=== PATIENT | female | born 1950 | race Asian ===

== ENCOUNTER 2016-07-02 10:20 | Observation (INO) | payer MEDICARE ==
[2016-07-02] MEDS ORDERED: Alum Hydroxide/Mag Hydroxide 30 ML, Lidocaine 2% 15 ML PO ONE ×2 (10:41)
[2016-07-02] MEDS: Sodium Chloride 0.9% 1,000 ML IV SCH ×4 (10:42→23:32)
[2016-07-02] MEDS ORDERED: Aspirin 81 MG Tab.Chew PO ONE (10:42)
[2016-07-02] MEDS ORDERED: Insulin Regular, Human 100 Units/ML 3 ML Vial IV ONE (10:44)
[2016-07-02] MEDS ORDERED: Sodium Chloride 0.9% 1,000 ML IV SCH (10:45)
--- NOTE | 2016-07-02 10:51 | EDM.PDOC ---
ED HPI GENERAL MEDICAL PROBLEM - General Chief Complaint: General Stated Complaint: CHEST PAIN -PH BLOOD SUGAR Time Seen by Provider: 07/02/16 10:00 Source of Information: Reports: Patient History Limitations: Reports: No limitations - History of Present Illness INITIAL COMMENTS - FREE TEXT/NARRATIVE: c/o N, V, diarrhea, rib pain, sternal pain x 24h pt had seen Dr Reyes in past, dx DM nearly 10y ago, had been on metformin, on no meds and not seen a physician in 3y and daughter are here watery brown BM x 20 yesterday with N/V has had L lower rib pain anteriorly x 1m, now with midsubsternal CP off and on x 12h, in ED with rib pain but no substernal pain no f/c/d, weak, no appetite smokes 1 ppd Thoracic Pain Score (Numeric/FACES): 6 - Related Data Allergies Allergy/AdvReac Type Severity Reaction Status Date / Time No Known Allergies Allergy Verified 07/02/16 10:33 Home Meds: Home Meds NK [No Known Home Meds] 07/02/16 [History] Past Medical History - Past Surgical History Other Musculoskeletal Surgeries/Procedures:: ELBOW ET WRIST SURGERY Social & Family History - Tobacco Use Smoking Status *Q: Current Every Day Smoker Years of Tobacco use: 40 Used Tobacco, but Quit: No Second Hand Smoke Exposure: No - Alcohol Use Days Per Week of Alcohol Use: 0 - Recreational Drug Use Recreational Drug Use: No ED ROS GENERAL - Review of Systems Review Of Systems: See Below Constitutional: Reports: weakness, fatigue, decreased appetite HEENT: Reports: No symptoms Respiratory: Reports: No Symptoms, Other Cardiovascular: Reports: Chest pain Endocrine: Reports: no symptoms GI/Abdominal: Reports: No symptoms : Reports: no symptoms Musculoskeletal: Reports: no symptoms Skin: Reports: no symptoms Neurological: Reports: No Symptoms Psychiatric: Reports: No symptoms Hematologic/Lymphatic: Reports: no symptoms Immunologic: Reports: no symptoms ED EXAM, GENERAL - Physical Exam Exam: See Below Exam Limited By: No limitations General Appearance: alert, WD/WN, no apparent distress Ears: normal external exam, hearing grossly normal Nose: normal inspection, normal mucosa, no blood Throat/Mouth: Normal inspection, Normal lips, Normal teeth, Normal gums, Normal oropharynx, Normal voice, No airway compromise Head: atraumatic, normocephalic Neck: normal inspection, supple, non-tender, full range of motion Respiratory/Chest: no respiratory distress, lungs clear, normal breath sounds, no accessory muscle use, chest non-tender Cardiovascular: regular rate, rhythm, no edema, no gallop, no rub, other (2/6 JOSÉ at LSB) GI/Abdominal: soft, non tender, no organomegaly, no distention, no mass Back Exam: normal inspection, full range of motion, NT Extremities: normal inspection, normal range of motion, non-tender, no pedal edema, normal capillary refill, other (dec'd turgor UE without tenting) Neurological: alert, oriented, CN II-XII intact, normal cognition, no motor/ sensory deficits Psychiatric: normal affect, normal mood Skin Exam: Warm, Dry, Intact, Normal color, No rash Course - Vital Signs Last Recorded V/S: Last Vital Signs Temp 36.4 C 07/02/16 10:35 Pulse 84 07/02/16 10:35 Resp 28 H 07/02/16 10:35 BP 115/35 L 07/02/16 10:35 Pulse Ox 100 07/02/16 10:35 - Orders/Labs/Meds Orders: Active Orders 24 hr Category Date Time Status Ribs 2V w Chest Lt [CR] Stat Exams 07/02/16 10:39 Taken CULTURE BLOOD [BC] Urgent Lab 07/02/16 11:05 Received CULTURE BLOOD [BC] Urgent Lab 07/02/16 11:15 Received UA W/MICROSCOPIC [URIN] Stat Lab 07/02/16 10:36 Uncollected Sodium Chloride 0.9% [Normal Saline] 1,000 ml Med 07/02/16 10:45 Active IV ASDIRECTED Blood Culture x2 Reflex Set [OM.PC] Urgent Oth 07/02/16 10:36 Ordered EKG 12 Lead [EK] Routine Ther 07/02/16 10:36 Ordered Medication Orders Sodium Chloride (Normal Saline) 1,000 mls @ 999 mls/hr IV ASDIRECTED LUZ MARINA Labs: Laboratory Tests 07/02/16 07/02/16 07/02/16 Range/Units 11:05 11:05 11:05 WBC (4.5-12.0) X10-3/uL RBC (3.23-5.20) x10(6)uL Hgb (11.5-15.5) g/dL Hct (30.0-51.3) % MCV (80-96) fL MCH (27.7-33.6) pg MCHC (32.2-35.4) g/dL RDW (11.5-15.5) % Plt Count (125-369) X10(3)uL MPV (7.4-10.4) fL Neut % (Auto) (46-82) % Lymph % (Auto) (13-37) % [place] % (Auto) (4-12) % Eos % (Auto) (1.0-5.0) % Baso % (Auto) (0-2) % Neut # (Auto) (1.6-8.3) # Lymph # (Auto) (0.6-5.0) # [place] # (Auto) (0.0-1.3) # Eos # (Auto) (0.0-0.8) # Baso # (Auto) (0.0-0.2) # Sodium 137 (135-145) mmol/L Potassium 4.6 (3.5-5.3) mmol/L Chloride 114 H D (100-110) mmol/L Carbon Dioxide 14 L (23-29) mmol/L BUN 31 H D (8-23) mg/dL Creatinine 1.7 H (0.6-1.3) mg/dL Est Cr Clr Drug Dosing 20.51 mL/min Estimated GFR (MDRD) 30 L (>60) BUN/Creatinine Ratio 18.2 (9-20) Glucose 293 H (80-116) mg/dL POC Glucose (80-116) mg/dL Lactic Acid (0.5-2.2) mmol/L Calcium 8.4 L (8.6-10.2) mg/dL Phosphorus 4.2 (3.0-4.6) mg/dL Magnesium 1.9 (1.8-2.5) mg/dL Total Bilirubin 0.7 (0.1-1.3) mg/dL AST 20 D (5-27) IU/L ALT 15 D (14-26) IU/L Alkaline Phosphatase 117 H (56-112) IU/L Troponin I < 0.01 L (0.02-0.06) NG/ML C-Reactive Protein 1.1 H (0.0-1.0) mg/dL Total Protein 6.8 (6.0-8.0) g/dL Albumin 3.7 (3.2-4.6) g/dL Globulin 3.1 g/dL Albumin/Globulin Ratio 1.2 TSH, Ultra Sensitive 1.19 (0.4-5.5) nlU/mL 07/02/16 07/02/16 07/02/16 Range/Units 11:09 11:15 11:15 WBC 7.1 (4.5-12.0) X10-3/uL RBC 4.65 (3.23-5.20) x10(6)uL Hgb 13.8 (11.5-15.5) g/dL Hct 40.9 (30.0-51.3) % MCV 88.1 (80-96) fL MCH 29.8 (27.7-33.6) pg MCHC 33.8 (32.2-35.4) g/dL RDW 12.5 (11.5-15.5) % Plt Count 235 (125-369) X10(3)uL MPV 8.5 (7.4-10.4) fL Neut % (Auto) 84.4 H (46-82) % Lymph % (Auto) 10.7 L (13-37) % [place] % (Auto) 4.4 (4-12) % Eos % (Auto) 0 L (1.0-5.0) % Baso % (Auto) 0 (0-2) % Neut # (Auto) 6.0 (1.6-8.3) # Lymph # (Auto) 0.8 (0.6-5.0) # [place] # (Auto) 0.3 (0.0-1.3) # Eos # (Auto) 0.0 (0.0-0.8) # Baso # (Auto) 0.0 (0.0-0.2) # Sodium (135-145) mmol/L Potassium (3.5-5.3) mmol/L Chloride (100-110) mmol/L Carbon Dioxide (23-29) mmol/L BUN (8-23) mg/dL Creatinine (0.6-1.3) mg/dL Est Cr Clr Drug Dosing mL/min Estimated GFR (MDRD) (>60) BUN/Creatinine Ratio (9-20) Glucose (80-116) mg/dL POC Glucose 267 H (80-116) mg/dL Lactic Acid 2.5 H (0.5-2.2) mmol/L Calcium (8.6-10.2) mg/dL Phosphorus (3.0-4.6) mg/dL Magnesium (1.8-2.5) mg/dL Total Bilirubin (0.1-1.3) mg/dL AST (5-27) IU/L ALT (14-26) IU/L Alkaline Phosphatase (56-112) IU/L Troponin I (0.02-0.06) NG/ML C-Reactive Protein (0.0-1.0) mg/dL Total Protein (6.0-8.0) g/dL Albumin (3.2-4.6) g/dL Globulin g/dL Albumin/Globulin Ratio TSH, Ultra Sensitive (0.4-5.5) nlU/mL Meds: Medications Generic Name Dose Route Start Last Admin Trade Name Freq PRN Reason Stop Dose Admin Sodium Chloride 1,000 mls @ 999 mls/hr 07/02/16 10:45 Normal Saline IV ASDIRECTED LUZ MARINA Discontinued Medications Generic Name Dose Route Start Last Admin Trade Name Freq PRN Reason Stop Dose Admin Aspirin 324 mg 07/02/16 10:42 07/02/16 10:58 Aspirin PO 07/02/16 10:43 324 mg ONETIME ONE Administration Al Hydroxide/Mg Hydroxide 30 0 ml 07/02/16 10:41 07/02/16 11:03 ml/ Lidocaine HCl 15 ml PO 07/02/16 10:42 15 ml ONETIME ONE Administration Sodium Chloride 1,000 mls @ 999 mls/hr 07/02/16 10:45 07/02/16 12:12 Normal Saline IV 999 mls/hr ASDIRECTED LUZ MARINA Administration Insulin Human Regular 10 unit 07/02/16 10:44 07/02/16 11:23 Humulin R IV 07/02/16 10:45 Not Given ONETIME ONE Protocol - Re-Assessments/Exams Free Text/Narrative Re-Assessment/Exam: 07/02/16 12:32 12:32 d/w Dr Quiros who has accepted pt in admission, pt and agrees. Pt has EKG changes suggesting inferior wall ischemia, now nicely improved. Not given us a u/a yet which will still need to be done, receiving 2nd liter IVF. Slight mid substernal CP resolved with GI cocktail, still has rib pain, will tx rib pain with APAP and warm compresses. Pt more alert and animated after IVF, nontoxic. Departure - Departure Time of Disposition: 12:36 Disposition: 20 Condition: good Clinical Impression: Chest pain, rule out acute myocardial infarction, Dehydration, Lactic acidosis , Poorly controlled diabetes mellitus, Acute renal insufficiency, Acute electrocardiogram changes, T wave inversion on electrocardiogram, Diarrhea, Rib pain on left side, Hyperglycemia due to type 2 diabetes mellitus Forms: ED Department Discharge - My Orders Last 24 Hours: My Active Orders 07/02/16 10:36 UA W/MICROSCOPIC [URIN] Stat Blood Culture x2 Reflex Set [OM.PC] Urgent EKG 12 Lead [EK] Routine 07/02/16 10:39 Ribs 2V w Chest Lt [CR] Stat 07/02/16 10:45 Sodium Chloride 0.9% [Normal Saline] 1,000 ml IV ASDIRECTED 07/02/16 11:05 CULTURE BLOOD [BC] Urgent 07/02/16 11:15 CULTURE BLOOD [BC] Urgent - Assessment/Plan Last 24 Hours: My Active Orders 07/02/16 10:36 UA W/MICROSCOPIC [URIN] Stat Blood Culture x2 Reflex Set [OM.PC] Urgent EKG 12 Lead [EK] Routine 07/02/16 10:39 Ribs 2V w Chest Lt [CR] Stat 07/02/16 10:45 Sodium Chloride 0.9% [Normal Saline] 1,000 ml IV ASDIRECTED 07/02/16 11:05 CULTURE BLOOD [BC] Urgent 07/02/16 11:15 CULTURE BLOOD [BC] Urgent
[2016-07-02] MEDS ORDERED: Ondansetron 4 MG/2 ML SDV IV PRN (12:39)
[2016-07-02] MEDS ORDERED: Sodium Chloride 0.9% 10 ML Syringe FLUSH PRN (12:39)
[2016-07-02] MEDS ORDERED: Pneumococcal Polyvalent-23 Vaccine 0.5 ML SDV IM ONE (14:09)
--- NOTE | 2016-07-02 14:48 | CR ---
INDICATION: Left lower rib pain anteriorly after trauma to anterior left rib area. LEFT RIBS WITH CHEST: CHEST: An AP upright and an AP supine view of the chest were obtained. Nipple shadows are noted overlying the lower middle lung roa. A dextroconvex scoliosis of the thoracic spine is slightly more prominent than on the previous study of 08/22/2014. Bony structures may be slightly demineralized, raising question of osteoporosis - correlate clinically. Overlying EKG leads were noted. The heart is normal in size and shape. The aorta is calcified slightly in the arch area. An active infiltrate, effusion, contusion, or pneumothorax was not identified. IMPRESSION: 1. No acute process. 2. ASD aorta. 4. Mild scoliosis. 5. Question possibility of osteoporosis. LEFT RIBS: Three views of the left ribs were obtained and revealed an appearance suggesting demineralization - correlate clinically as to the possibility of osteoporosis. No displaced fracture site or other definite bony abnormality was identified. MTDD
--- NOTE | 2016-07-02 20:22 | PCM.HP ---
H&P History of Present Illness - General Date of Service: 07/02/16 Admit Problem/Dx: Admission Diagnosis/Problem Admission Diagnosis/Problem Chest pain Source of Information: Patient, Old records History Limitations: Reports: No limitations - History of Present Illness Initial Comments - Free Text/Narative: This is a 65-year-old female who presented to ER with diarrhea and vomiting she was in her usual state of health until yesterday. The diarrhea started suddenly accompanied by vomiting she's unable to keep anything down. She also developed chest pain today, retrosternal described as heartburn. She is up about a week ago leaned on the table in the left side and now complains of left rib cage pain as well. The chest pain is mild to moderate improved by oxygenation and does not seem to radiate anywhere. She has no fever or chills. She has a history of type 2 diabetes has not seen a doctor for more than 3 years because of insurance reasons. She also smokes about one pack per day. Thoracic Pain Score (Numeric/FACES): 6 Midsternal chest Pain Score (Numeric/FACES): 0 - Related Data Allergies/Adverse Reactions: Allergies Allergy/AdvReac Type Severity Reaction Status Date / Time No Known Allergies Allergy Verified 07/02/16 10:33 Home Medications: Home Meds NK [No Known Home Meds] 07/02/16 [History] Past Medical History HEENT History: Reports: Cataract, Impaired vision Cardiovascular History: Reports: SOB on exertion Respiratory History: Reports: SOB Gastrointestinal History: Reports: GERD Genitourinary History: Reports: Pyelonephritis, UTI, recurrent [employer] History: Reports: Musculoskeletal History: Reports: Arthritis Psychiatric History: Reports: Anxiety, Depression, Panic attack Endocrine/Metabolic History: Reports: Diabetes, type II - Infectious Disease History Infectious Disease History: Reports: Chicken pox - Past Surgical History GI Surgical History: Reports: Appendectomy Female Surgical History: Reports: section Other Female Surgeries/Procedures: CS x 2 Musculoskeletal Surgical History: Reports: Arthroscopic knee, Hip replacement Other Musculoskeletal Surgeries/Procedures:: R ELBOW ET R WRIST SURGER, R knee scope, R hip replacement Social & Family History - Family History Family Medical History: Noncontributory - Tobacco Use Smoking Status *Q: Current Every Day Smoker Years of Tobacco use: 40 Packs/Tins Daily: 1 Used Tobacco, but Quit: No Second Hand Smoke Exposure: No - Caffeine Use Caffeine Use: Reports: Coffee, Soda, Tea - Alcohol Use Days Per Week of Alcohol Use: 0 - Recreational Drug Use Recreational Drug Use: No H&P Review of Systems - Review of Systems: Review Of Systems: ROS reveals no pertinent complaints other than HPI. Exam - Exam Exam: See Below - Vital Signs Vital Signs: Last Vital Signs Temp 98.3 F 07/02/16 16:40 Pulse 84 07/02/16 10:35 Resp 18 07/02/16 17:40 BP 108/42 L 07/02/16 17:40 Pulse Ox 100 07/02/16 17:40 Weight: 39.326 kg - Exam Quality Assessment: supplemental oxygen General: alert, oriented, 4 HEENT: PERRLA, Hearing intact, Mucosa moist & pink, Nares patent, Normal nasal septum, Posterior pharynx clear, Conjunctiva clear, EOMI, EACs clear, TMs clear Neck: supple, trachea midline, 2 Lungs: Clear to auscultation, Normal respiratory effort Cardiovascular: regular rate, regular rhythm Abdomen: normal bowel sounds, soft (Female) Exam: Deferred Rectal (Female) Exam: Deferred Back Exam: normal inspection, full range of motion, NT Extremities: 3, normal inspection, 10 Skin: warm, dry, intact Neurological: cranial nerves intact, reflexes equal bilateral Neuro Extensive - Mental Status: alert, oriented x3, normal mood/affect, normal cognition Neuro Extensive - Motor, Sensory, Reflexes: CN II-XII intact, normal gait, normal reflexes Psychiatric: alert, normal affect, normal mood - Patient Data Lab Results last 24 hrs: Laboratory Results - last 24 hr 07/02/16 07/02/16 07/02/16 Range/Units 14:15 16:49 18:07 POC Glucose 107 D (80-116) mg/dL Troponin I < 0.01 L (0.02-0.06) NG/ML Urine Color Yellow (YELLOW) Urine Appearance Slightly cloudy (CLEAR) Urine pH 5.0 (5.0-6.5) Ur Specific [place] 1.020 (1.010-1.025) Urine Protein Negative (NEGATIVE) mg/dL Urine Glucose (UA) >1000 H (NEGATIVE) mg/dL Urine Ketones Negative (NEGATIVE) mg/dL Urine Occult Blood Negative (NEGATIVE) Urine Nitrite Negative (NEGATIVE) Urine Bilirubin Negative (NEGATIVE) Urine Urobilinogen Normal (NEGATIVE) mg/dL Ur Leukocyte Esterase Small H (NEGATIVE) Urine RBC 0-5 (0) Urine WBC 0-5 (0) Ur Squamous Epith Cells Few H (NS,R,O) Urine Bacteria Few H (NS) Result Diagrams: 07/02/16 11:15 07/02/16 11:05 Imaging Impressions last 24 hrs: Reviewed CXR EKG INTERPRETATION Rhythm: NSR *Q Meaningful Use (ADM) - VTE *Q VTE Criteria *Q: - Stroke *Q Stroke Criteria *Q: - AMI *Q AMI Criteria *Q: - Problem List (1) Tobacco abuse SNOMED Code(s): 671287269, 541398465 ICD Code: Z72.0 - TOBACCO USE Status: Acute Current Visit: Yes (2) Hyperlipemia SNOMED Code(s): 25744037 ICD Code: E78.5 - HYPERLIPIDEMIA, UNSPECIFIED Status: Acute Current Visit : Yes Qualifiers: Hyperlipidemia type: unspecified Qualified Code(s): E78.5 - Hyperlipidemia , unspecified (3) Chest pain, rule out acute myocardial infarction SNOMED Code(s): 15160041 ICD Code: R07.9 - CHEST PAIN, UNSPECIFIED Status: Acute Current Visit: Yes (4) Diarrhea SNOMED Code(s): 73386045 ICD Code: R19.7 - DIARRHEA, UNSPECIFIED Status: Acute Current Visit: Yes Qualifiers: Diarrhea type: infectious Qualified Code(s): A09 - Infectious gastroenteritis and colitis, unspecified (5) Poorly controlled diabetes mellitus SNOMED Code(s): 289002020 ICD Code: E11.65 - TYPE 2 DIABETES MELLITUS WITH HYPERGLYCEMIA Status: Chronic Current Visit: Yes (6) Rib pain on left side SNOMED Code(s): 497775669 ICD Code: R07.81 - PLEURODYNIA Status: Acute Current Visit: Yes Problem List Initiated/Reviewed/Updated: Yes Orders Last 24hrs: Active Orders 24 hr Category Date Time Status Blood Glucose Check, Bedside [RC] 07,11,16,21 Care 07/02/16 16:00 Active Echo Comp wo Cont [US] Routine Exams 07/03/16 08:00 Ordered Sodium Chloride 0.9% [Normal Saline] 1,000 ml Med 07/02/16 13:30 Active IV ASDIRECTED EKG 12 Lead [EK] Routine Ther 07/02/16 18:00 Ordered Medication Orders Acetaminophen (Tylenol) 650 mg PO Q4H PRN PRN Reason: Pain (Mild 1-3)/fever Sodium Chloride (Normal Saline) 1,000 mls @ 100 mls/hr IV ASDIRECTED LUZ MARINA Last Admin: 07/02/16 13:20 Dose: 100 mls/hr Ondansetron HCl (Zofran) 4 mg IV Q4H PRN PRN Reason: Nausea/Vomiting Sodium Chloride (Saline Flush) 10 ml FLUSH ASDIRECTED PRN PRN Reason: Keep Vein Open Assessment/Plan Comment:: I revieed both the chest x-ray and EKG;I was not impressed by any findings. Will admit however for rule out NM with negative troponins the morning and this limits with a gastroenteritis and treat symptomatically Zofran as needed. Her sugars appear to be normal but we'll keep a tight glucose control I anticipate discharge tomorrow.
[2016-07-03] MEDS: Acetaminophen 325 MG Tab PO PRN ×3 (05:30→21:15)
[2016-07-03] MEDS ORDERED: glipiZIDE 5 MG Tab.ER PO SCH (10:00)
[2016-07-03] MEDS: Sodium Chloride 0.9% 1,000 ML IV SCH ×3 (10:28→23:45)
--- NOTE | 2016-07-03 11:47 | CR ---
INDICATION: Question pneumonia after hydration, chest pain. CHEST: PA and lateral views of the chest 07/03/2016 were compared with 2016 and 08/22/2014. The heart remains normal in size and shape. There is some minimal calcification in the arch of the aorta. Bony structures appear to be somewhat demineralized, suggesting osteoporosis. A mild dextroconvex scoliosis of upper middle thoracic spine is noted with some very minimal loss of anterior vertebral artery volume at mid and lower thoracic level. No evidence of CHF or an active infiltrate or effusion was identified. Somewhat flattened diaphragm leaves suggest obstructive airway disease - COPD. Overlying EKG leads are noted. IMPRESSION: 1. No definite acute process. 2. COPD, progressive. 3. ASD aorta. 4. Demineralization compatible with osteoporosis with mild scoliosis. 5. No consolidating pneumonia or effusion. MTDD
[2016-07-03] MEDS: Insulin Aspart 100 Units/ML 3 ML Pen SUBCUT SCH ×2 (13:54→18:16)
[2016-07-03] MEDS: Loperamide 2 MG Cap PO PRN (21:23)
[2016-07-04] MEDS: Loperamide 2 MG Cap PO PRN ×3 (05:09→16:52)
[2016-07-04] MEDS: Sodium Chloride 0.9% 1,000 ML IV SCH (06:05)
[2016-07-04] MEDS ORDERED: Potassium Chloride 20 MEQ Tab.ER PO ONE (08:46)
[2016-07-04] MEDS ORDERED: Sodium Chloride 0.45% with KCl 1,000 ML IV SCH (09:30)
--- NOTE | 2016-07-04 09:50 | PN ---
DATE SEEN: 07/04/2016 CHIEF COMPLAINT: Diarrhea. HISTORY OF PRESENT ILLNESS: This is a 65-year-old female, type 2 diabetic, poorly controlled, admitted for diarrhea and generalized body aches. Overnight, she slept better. She still has some diarrhea. No more chest pain that she came with. No vomiting. Appetite is still low. Sugars are very low this morning. REVIEW OF SYSTEMS: No abdominal pain. No chest pain. No shortness of breath. ALLERGIES: None. PHYSICAL EXAMINATION: GENERAL: She is not in distress. VITAL SIGNS: Her blood pressure is 118/52, temperature 98.4, pulse is 74, ENT negative. ABDOMEN: Soft. CHEST: Clear. HEART: Regular rhythm. LABORATORY DATA: Bicarb is 14 and potassium is 2.8. IMPRESSION: 1. Acute gastroenteritis. 2. Hypokalemia. 3. Type 2 diabetes. 4. Chest pain, nonspecific. PLAN: To give 40 mEq of potassium orally. Give a bolus of normal saline and then replace potassium through the IV with half normal saline. I will repeat a basic metabolic profile at around 4 o'clock and discharge home at that time if the potassium is improving. /[id number] CHEY/DOMENICA
[2016-07-04] MEDS: Insulin Aspart 100 Units/ML 3 ML Pen SUBCUT SCH ×2 (10:17→16:48)
[2016-07-04] MEDS ORDERED: Potassium Chloride 10 MEQ Tab.ER PO ONE (17:07)
[2016-07-04 17:23] VITALS: BP 108/50
--- NOTE | 2016-07-05 09:12 | DISCH ---
DISCHARGE DATE: 07/04/2016 The patient was discharged on 07/04/2016. DISCHARGE DIAGNOSES: Type 2 diabetes, hypokalemia, gastroenteritis, nonspecific chest pain, ribcage pain, hyperlipidemia. PROCEDURES: None. BRIEF HISTORY: This is a 65-year-old female, who had not seen a physician for 3 years or so. She presented with nonspecific chest pain and a fall that caused pain in the left rib cage. She was also noted to have a mild low-grade fever and diarrhea. She was kept for IV fluid replacement, monitoring. Cardiac enzymes were negative x3. EKG was negative x3. Potassium was 2.8 the day prior to discharge and I replaced her potassium orally and through the IV and by the time she left, potassium was back to 3.1. I discharged her home on potassium 20 mEq twice a day for 2 days and advised her to see physician Dr. Chatterjee on Wednesday. While she was in the hospital, she was hypoglycemic because she was not eating. Even though her A1c was 9.9, I elected not to send her home on any oral hypoglycemics because of the current illness. /[id number] CHEY/DOMENICA
--- NOTE | 2016-07-06 07:22 | PN ---
DATE SEEN: 07/03/2016 REASON FOR ADMISSION: Diarrhea. HISTORY OF PRESENT ILLNESS: A 65-year-old female was admitted for diarrhea, nonspecific chest pain, and ribcage pain. Overnight, she has developed a fever and continues to have diarrhea. She also feels chilly and complains of generalized myalgias. She has not vomited. She denies any abdominal pain. She has a history of type 2 diabetes, previously stable; hyperlipidemia, previously stable; but now, A1c has gone up to 9.9. REVIEW OF SYSTEMS: Denies any cough but has cold symptoms, nasal congestion, generalized weakness. No headaches or sore throat. MEDICATIONS: Please see the nurse's notes. ALLERGIES: No known allergies. PHYSICAL EXAMINATION: GENERAL: Mildly ill. VITAL SIGNS: Temperature 98.0, pulse is 78. EARS, NOSE, AND THROAT: Clear nasal drainage. NECK: Supple. CARDIOVASCULAR: Normal. RESPIRATORY SYSTEM: Clear. ABDOMEN: Soft and benign. LABORATORY STUDIES: Troponin is negative. CMP revealed a sodium of 134 and a bicarb of 15. UA negative for infection. IMPRESSION: 1. Upper respiratory infection. 2. Acute gastroenteritis. 3. Dehydration. 4. Chest pain, nonspecific. 5. Ribcage pain. 6. Type 2 diabetes. 7. Hyperlipidemia. PLAN: To continue IV fluid replacement today. I do not feel the antibiotics necessary but to keep her temperature down with Tylenol as needed. I will also give loperamide to control the diarrhea. /[id number] CHEY/DOMENICA
== END 2016-07-04 18:35 | disposition home or self-care (01) ==
LOC: FB.ED 10:20 → UNDOADMOB 12:40 → FB.MS 12:40 → UNDOADMOB 07-04 10:26 → UNDODISOB 07-04 18:35
PROVIDERS: ADMIT Family Medicine; ATTEND Family Medicine
DX: K52.9 Noninfective gastroenteritis and colitis, unspecified (principal); E87.6 Hypokalemia; E11.65 Type 2 diabetes mellitus with hyperglycemia; R07.9 Chest pain, unspecified; E78.5 Hyperlipidemia, unspecified; F41.9 Anxiety disorder, unspecified; F32.9 Major depressive disorder, single episode, unspecified; K21.9 Gastro-esophageal reflux disease without esophagitis; Z90.49 Acquired absence of other specified parts of digestive tract; Z98.890 Other specified postprocedural states; Z96.641 Presence of right artificial hip joint; Z96.651 Presence of right artificial knee joint; F17.210 Nicotine dependence, cigarettes, uncomplicated; Z72.0 Tobacco use; R07.81 Pleurodynia; Z79.899 Other long term (current) drug therapy
CPT/HCPCS: 36415; 71020; 71101; 80048; 80053; 81001; 82962; 83036; 83605; 83735; 84100; 84443; 84484; 85025; 86140; 87040; 93005; 93306; 96361; 96374; 99285; A9270; G0378; J3480; J7040; J7050; 96360; 99217; 99218; 99225; J1815

== ENCOUNTER 2016-09-25 21:58 | Emergency (ER) | payer MEDICARE ==
[2016-09-25] MEDS ORDERED: HYDROmorphone 2 MG/ML SDV IM ONE (22:17)
[2016-09-25] MEDS ORDERED: Ondansetron 4 MG Tab.DIS PO PRN (22:21)
[2016-09-25] MEDS ORDERED: Sodium Chloride 0.9% 10 ML Syringe FLUSH PRN (23:57)
[2016-09-26 00:37] VITALS: BP 127/52
--- NOTE | 2016-09-28 16:21 | ER ---
DATE SEEN: 09/25/2016 TIME SEEN: The patient was seen at 2204 hours. CHIEF COMPLAINT: Right hip pain, fall. HISTORY OF PRESENT ILLNESS: This 66-year-old [place] woman a 45-ajfm-cooy smoker with diabetes, previous pyelonephritis history, lactic acidosis, renal insufficiency, EKG changes, dyslipidemia, who does not know her medicines, was walking today, fell on her right hip and has pain in her right hip. She fell at approximately [address]. She weighs approximately 85 pounds. Denies drinking or alcohol. She had previous right hip prosthesis placed. Has extreme pain if she moves her hip in any direction. REVIEW OF SYSTEMS: Otherwise negative, except for that noted in past medical history. She controls her diabetes with oral medicines, does not take insulin. ALLERGIES: None. MEDICATIONS: She does not know what medications she is on. On July 02, 2014, she had some chest pain. EKG was normal. No elevation in troponin. PAST SURGERY HISTORY: C-sections x2, arthroscopic surgery right knee, hip replacement right side, right elbow fracture, and also knee joint arthroscopy was performed. PHYSICAL EXAMINATION: VITAL SIGNS: Blood pressure 120/44, heart rate 73 and sinus, respiratory rate 16, oxygen saturation on room air 100%, and temperature is 36.6 degrees centigrade. GENERAL: The patient is an alert and appropriate woman, who has marked pain with any movement of her hip, lying on her back. She is very asthenic. She is missing several teeth. HEENT: PERRLA intact. Pharynx without abnormality. Mucosa is moist. NECK: No cervical adenopathy. No bruits in neck. No thyromegaly. LUNGS: Clear to auscultation without rales, rhonchi, or wheezes. HEART: S1, S2. No murmur. ABDOMEN: Soft. No guarding. No abdominal discomfort. No masses. EXTREMITIES: Right lower extremity, reluctant to move her hip at all; it causes marked pain. She has straight leg raise of the opposite leg without problems. No left leg pain. No knee abrasion or ankle abrasion or swelling. DIAGNOSTIC STUDIES: X-ray reveals suggestion of the proximal collar of the prothesis that it is seated in, is cracked and perhaps partially pieces (fractured). She has marked osteopenia. Dr. Grullon was not available. Consequently, I spoke to the [facility]. The hospitalist will admit the patient. Orthopedics will see her in the morning, Dr. Martinez. DIAGNOSES: 1. Right prosthetic hip site fracture femur. 2. A 52-mhfr-hzkp smoker, high risk for cancer. 3. Very low weight. 4. Diabetes. 5. Pyelonephritis history. 6. History of status post appendectomy, x2, arthroscopies, right hip replacement, right elbow and right knee scraping. /[id number] NOE/DOMENICA
--- NOTE | 2016-10-01 09:12 | CR ---
INDICATION: Fall, pain. AP PELVIS WITH RIGHT HIP AP AND LATERAL VIEWS: FINDINGS: I do not have comparison imaging. There is a right hip arthroplasty that is identified. I believe the patient likely has an acute fracture in the right hip region. Extending obliquely in an intertrochanteric location, there appears to be an acute fracture. There is a lucency that has somewhat abrupt, non-sclerotic margins. I do not see any significant periosteal new bone formation. The right hip arthroplasty itself otherwise looks non-remarkable. There is no dislocation or loosening. I do not see any additional fractures. There is some mild osteoarthritis associated with the left hip joint. There are additional degenerative changes in the lower lumbar spine. IMPRESSION: I think this patient has an acute intertrochanteric fracture of the right hip. This is superimposed in the setting of a previous right hip arthroplasty. [facility]
== END 2016-09-26 00:31 ==
LOC: FB.ED 21:58
DX: T84.010A Broken internal right hip prosthesis, initial encounter (principal); R63.4 Abnormal weight loss; E11.9 Type 2 diabetes mellitus without complications; Z90.49 Acquired absence of other specified parts of digestive tract; Z98.890 Other specified postprocedural states; Z96.641 Presence of right artificial hip joint; W10.1XXA Fall (on)(from) sidewalk curb, initial encounter; F17.210 Nicotine dependence, cigarettes, uncomplicated
CPT/HCPCS: 73502; 96372; 99285; A9270; J1170; J7050; 99284

== ENCOUNTER 2016-09-29 09:49 | Inpatient (IN) | payer MEDICARE ==
[2016-09-29] MEDS ORDERED: Non-Formulary Medication 1 Each (Nicotine Polacrilex [Nicotine Lozenge] 2 MG) PO PRN (14:23)
[2016-09-29] MEDS ORDERED: Carboxymethylcellulose Sodium 0.5% Ophth Soln 0.4 ML UD Box of 30 EYEBOTH PRN (14:23)
[2016-09-29] MEDS: Gabapentin 100 MG Cap PO SCH ×2 (16:51→21:12)
[2016-09-29] MEDS: Acetaminophen 325 MG Tab PO SCH ×2 (16:52→21:13)
[2016-09-29] MEDS: metFORMIN 1,000 MG Tab PO SCH (17:04)
[2016-09-29] MEDS: Calcium Carbonate/Vitamin D3 1250 MG-200 Unit Tab PO SCH (17:04)
[2016-09-29] MEDS ORDERED: Nicotine Polacrilex 2 MG Gum CHEW PRN (17:12)
--- NOTE | 2016-09-29 17:46 | PCM.HP ---
H&P History of Present Illness - General Date of Service: 09/29/16 Admit Problem/Dx: Admission Diagnosis/Problem Admission Diagnosis/Problem Fracture of femur Source of Information: Patient History Limitations: Reports: No Limitations - History of Present Illness Initial Comments - Free Text/Narative: This is a 66-year-old female patient that about 6 days ago was walking on a sidewalk and fell and hurt her right hip. She was seen here and transferred to [place] for a femur fracture. It was nondisplaced and they elected not to operate on the hip. She was sent here for rehabilitation and nonweightbearing. She states she does have pain in the right hip. She has no other concerns. Right Hip Pain Score (Numeric/FACES): 4 - Related Data Allergies/Adverse Reactions: Allergies Allergy/AdvReac Type Severity Reaction Status Date / Time No Known Allergies Allergy Verified 09/29/16 16:27 Home Medications: Home Meds Acetaminophen [Tylenol] 650 mg PO QID 09/29/16 [History] Calcium Carbonate [[id number]] 500 mg PO BIDMEALS 09/29/16 [History] Carboxymethylcellulose Sodium [Refresh Plus 0.5%] 1 drop EYEBOTH QID PRN [History] Cholecalciferol (Vitamin D3) [Vitamin D3] 2,000 unit PO DAILY 09/29/16 [History] Famotidine 20 mg PO DAILY 09/29/16 [History] Gabapentin [Neurontin] 200 mg PO TID 09/29/16 [History] Multivitamin [Daily Saul] 1 tab PO DAILY 09/29/16 [History] Nicotine Polacrilex [Nicotine Lozenge] 2 mg PO Q1H PRN 09/29/16 [History] Nicotine [Habitrol] 14 mg TOP DAILY 09/29/16 [History] Nicotine [Habitrol] 21 mg TOP DAILY 09/29/16 [History] Ondansetron HCl [Zofran] 4 mg PO Q6H PRN 09/29/16 [History] Sennosides/Docusate Sodium [Senna S Tablet] 2 ea PO BID 09/29/16 [History] metFORMIN [Glucophage] 1,000 mg PO BID 09/29/16 [History] oxyCODONE 5 mg PO Q4H PRN 09/29/16 [History] Past Medical History HEENT History: Reports: Cataract, Impaired Vision Cardiovascular History: Reports: SOB on Exertion Respiratory History: Reports: SOB Gastrointestinal History: Reports: GERD Genitourinary History: Reports: Pyelonephritis, UTI, Recurrent SPLASH [employer]ATOR History: Reports: Musculoskeletal History: Reports: Arthritis Psychiatric History: Reports: Anxiety, Depression, Panic Attack Endocrine/Metabolic History: Reports: Diabetes, Type II - Infectious Disease History Infectious Disease History: Reports: Chicken Pox - Past Surgical History Female Surgical History: Reports: Section Musculoskeletal Surgical History: Reports: Arthroscopic Knee, Hip Replacement Social & Family History - Family History Family Medical History: Noncontributory - Tobacco Use Smoking Status *Q: Current Every Day Smoker Years of Tobacco use: 40 Packs/Tins Daily: 1 Used Tobacco, but Quit: No Second Hand Smoke Exposure: No - Caffeine Use Caffeine Use: Reports: Coffee, Tea - Alcohol Use Days Per Week of Alcohol Use: 0 - Recreational Drug Use Recreational Drug Use: No H&P Review of Systems - Review of Systems: Review Of Systems: See Below General: Reports: No Symptoms HEENT: Reports: No Symptoms Pulmonary: Reports: No Symptoms Cardiovascular: Reports: No Symptoms Gastrointestinal: Reports: No Symptoms Genitourinary: Reports: No Symptoms Musculoskeletal: Reports: Joint Pain Skin: Reports: No Symptoms Psychiatric: Reports: No Symptoms Neurological: Reports: No Symptoms Hematologic/Lymphatic: Reports: No Symptoms Immunologic: Reports: No Symptoms Exam - Exam Exam: See Below - Vital Signs Vital Signs: Last Vital Signs Temp 98.0 F 09/29/16 13:05 Pulse 71 09/29/16 13:05 Resp 16 09/29/16 13:05 BP 122/46 L 09/29/16 13:05 Pulse Ox 96 09/29/16 13:05 Weight: 88 lb 1.6 oz - Exam General: Alert, Oriented, Cooperative HEENT: Hearing Intact, Mucosa Moist & [place], Posterior Pharynx Clear, Pupils Reactive, TMs Clear Neck: Supple, Trachea Midline, Full Range of Motion. No: Carotid Bruit Lungs: Clear to Auscultation, Normal Respiratory Effort. No: Crackles, Rales, Rhonchi Cardiovascular: Regular Rate, Regular Rhythm, Normal S1, Normal S2. No: Irregular Rhythm, Bradycardia, Tachycardia, Systolic Murmur, Diastolic Murmur Abdomen: Normal Bowel Sounds, Soft. No: Organomegaly, Peritoneal Signs, Distention, Guarding Back Exam: Normal Inspection, Full Range of Motion Extremities: No: Edema Neurological: Normal Speech, Normal Tone Neuro Extensive - Mental Status: Alert, Oriented x3, Normal Mood/Affect, Normal Cognition Neuro Extensive - Motor, Sensory, Reflexes: Other (Walks with a walker nonweightbearing right leg). No: Normal Gait Psychiatric: Alert, Normal Affect, Normal Mood - Patient Data Lab Results Last 24 hrs: Laboratory Results - last 24 hr 09/29/16 Range/Units 17:04 POC Glucose 113 (80-116) mg/dL *Q Meaningful Use (ADM) - VTE *Q VTE Criteria *Q: - Stroke *Q Stroke Criteria *Q: - AMI *Q AMI Criteria *Q: - Problem List (1) Femur fracture, right SNOMED Code(s): 11607919 ICD Code: S72.91XA - UNSP FRACTURE OF RIGHT FEMUR, INIT FOR CLOS FX Status : Acute Current Visit: Yes (2) Tobacco abuse SNOMED Code(s): 289776911, 515479735 ICD Code: Z72.0 - TOBACCO USE Status: Acute Current Visit: No Problem List Initiated/Reviewed/Updated: Yes Orders Last 24hrs: Active Orders 24 hr Category Date Time Status Patient Status [ADT] Routine ADT 09/29/16 14:24 Active Accu Check [Blood Glucose Check, Bedside] [RC] BIDMEALS Care 09/29/16 14:27 Active May Shower [RC] ASDIRECTED Care 09/29/16 14:24 Active Oxygen Therapy [RC] PRN Care 09/29/16 14:24 Active Up With Assistance [RC] 09,13,17,21 Care 09/29/16 14:24 Active VTE/DVT Education [RC] Per Unit Routine Care 09/29/16 14:24 Active Vital Signs [RC] 08 Care 09/29/16 14:24 Active OT Evaluation and Treatment [CONS] Routine Cons 09/29/16 14:24 Active PT Evaluation and Treatment [CONS] Routine Cons 09/29/16 14:24 Active Consistent Carbohydrate Diet [DIET] Diet 09/29/16 Dinner Active Acetaminophen [Tylenol] Med 09/29/16 17:00 Active 650 mg PO QID Calcium Carbonate/Vitamin D3 [Calcium Carbonate/Vitamin Med 09/29/16 18:00 Active D 1250 MG-200 Unit] 1 tab PO BIDMEALS Carboxymethylcellulose Sodium [Refresh Plus 0.5%] Med 09/29/16 14:23 Active 0 each EYEBOTH QID PRN Cholecalciferol (Vitamin D3) [Vitamin D3] Med 09/30/16 09:00 Active 2,000 units PO DAILY Docusate Sodium/Sennosides [Senna Plus] Med 09/29/16 21:00 Active 2 tab PO BID Famotidine [Pepcid] Med 09/30/16 09:00 Active 20 mg PO DAILY Gabapentin [Neurontin] Med 09/29/16 14:00 Active 200 mg PO TID Multivitamins [Tab-A-Saul] Med 09/30/16 09:00 Active 1 tab PO DAILY Nicotine Polacrilex [Nicorelief] Med 09/29/16 17:12 Active 2 mg CHEW Q1H PRN Nicotine [Habitrol] Med 09/30/16 09:00 Active 21 mg TOP DAILY Ondansetron [Zofran ODT] Med 09/29/16 14:35 Active 4 mg PO Q6H PRN metFORMIN [Glucophage] Med 09/29/16 18:00 Active 1,000 mg PO BIDMEALS oxyCODONE Med 09/29/16 14:23 Active 5 mg PO Q4H PRN Resuscitation Status Routine Resus Stat 09/29/16 14:24 Ordered Medication Orders Acetaminophen (Tylenol) 650 mg PO QID [facility] Stop: 10/13/16 13:01 Last Admin: 09/29/16 16:52 Dose: 650 mg Artificial Tears (Refresh Plus 0.5%) 0 each EYEBOTH QID PRN PRN Reason: Dry Eyes Calcium Carbonate (Calcium Carbonate/Vitamin D 1250 Mg-200 Unit) 1 tab PO BIDMEALS [facility] Last Admin: 09/29/16 17:04 Dose: 1 tab Cholecalciferol (Vitamin D3) 2,000 units PO DAILY [facility] Famotidine (Pepcid) 20 mg PO DAILY [facility] Stop: 10/09/16 09:01 Gabapentin (Neurontin) 200 mg PO TID [facility] Stop: 10/13/16 09:01 Last Admin: 09/29/16 16:51 Dose: 200 mg Metformin HCl (Glucophage) 1,000 mg PO BIDMEALS [facility] Last Admin: 09/29/16 17:04 Dose: 1,000 mg Multivitamins/Minerals/Vitamin C (Tab-A-Saul) 1 tab PO DAILY [facility] Nicotine (Habitrol) 21 mg TOP DAILY [facility] Nicotine Polacrilex (Nicorelief) 2 mg CHEW Q1H PRN PRN Reason: smoking Ondansetron HCl (Zofran Odt) 4 mg PO Q6H PRN PRN Reason: Nausea/Vomiting Oxycodone HCl (Oxycodone) 5 mg PO Q4H PRN PRN Reason: MODERATE/SEVERE PAIN Senna/Docusate Sodium (Senna Plus) 2 tab PO BID [facility] Stop: 10/09/16 09:01 Assessment/Plan Comment:: 1. Admit to swing bed full code. 2. See swing bed orders with PT/OT. 3. Diabetic diet with blood sugars twice a day 4. By mouth pain control. 5. No labs needed.
[2016-09-30] MEDS: Ondansetron 4 MG Tab.DIS PO PRN (06:19)
[2016-09-30] MEDS: oxyCODONE 5 MG Tab PO PRN ×4 (06:20→20:32)
[2016-09-30] MEDS ORDERED: Cholecalciferol (Vitamin D3) 1,000 Unit Tab PO SCH (09:00)
[2016-09-30] MEDS ORDERED: Nicotine 14 MG/24 Hr Patch TOP SCH (09:00)
[2016-09-30] MEDS: Gabapentin 100 MG Cap PO SCH ×3 (09:20→20:33)
[2016-09-30] MEDS: Acetaminophen 325 MG Tab PO SCH ×4 (09:21→20:32)
[2016-09-30] MEDS: Nicotine 21 MG/24 Hr Patch TOP SCH (09:22)
[2016-09-30] MEDS: Calcium Carbonate/Vitamin D3 1250 MG-200 Unit Tab PO SCH ×2 (09:22→18:09)
[2016-09-30] MEDS: Famotidine 20 MG Tab PO SCH (09:22)
[2016-09-30] MEDS: Multivitamin Tab PO SCH (09:29)
[2016-09-30] MEDS: metFORMIN 1,000 MG Tab PO SCH ×2 (09:29→18:09)
[2016-10-01] MEDS: oxyCODONE 5 MG Tab PO PRN ×3 (05:50→20:30)
[2016-10-01] MEDS: Calcium Carbonate/Vitamin D3 1250 MG-200 Unit Tab PO SCH ×2 (08:18→17:57)
[2016-10-01] MEDS: Nicotine 21 MG/24 Hr Patch TOP SCH (08:19)
[2016-10-01] MEDS: Gabapentin 100 MG Cap PO SCH ×3 (08:20→20:29)
[2016-10-01] MEDS: Famotidine 20 MG Tab PO SCH (08:20)
[2016-10-01] MEDS: Multivitamin Tab PO SCH (08:21)
[2016-10-01] MEDS: metFORMIN 1,000 MG Tab PO SCH ×2 (08:21→17:56)
[2016-10-01] MEDS: Acetaminophen 325 MG Tab PO SCH ×4 (08:21→20:30)
[2016-10-01] MEDS: Ondansetron 4 MG Tab.DIS PO PRN (19:10)
[2016-10-02] MEDS: metFORMIN 1,000 MG Tab PO SCH ×2 (10:26→18:07)
[2016-10-02] MEDS: Nicotine 21 MG/24 Hr Patch TOP SCH (10:26)
[2016-10-02] MEDS: Calcium Carbonate/Vitamin D3 1250 MG-200 Unit Tab PO SCH ×2 (10:26→18:19)
[2016-10-02] MEDS: Gabapentin 100 MG Cap PO SCH ×3 (10:27→21:32)
[2016-10-02] MEDS: Famotidine 20 MG Tab PO SCH (10:28)
[2016-10-02] MEDS: Acetaminophen 325 MG Tab PO SCH ×4 (10:29→21:30)
[2016-10-02] MEDS: Multivitamin Tab PO SCH (10:29)
[2016-10-02] MEDS: Ondansetron 4 MG Tab.DIS PO PRN (10:41)
[2016-10-02] MEDS: oxyCODONE 5 MG Tab PO PRN ×2 (10:41→22:13)
[2016-10-03] MEDS: Calcium Carbonate/Vitamin D3 1250 MG-200 Unit Tab PO SCH ×3 (09:51→19:10)
[2016-10-03] MEDS: Nicotine 21 MG/24 Hr Patch TOP SCH (09:51)
[2016-10-03] MEDS: metFORMIN 1,000 MG Tab PO SCH ×2 (09:51→18:39)
[2016-10-03] MEDS: Gabapentin 100 MG Cap PO SCH ×3 (09:52→21:33)
[2016-10-03] MEDS: Famotidine 20 MG Tab PO SCH (09:52)
[2016-10-03] MEDS: Multivitamin Tab PO SCH (09:52)
[2016-10-03] MEDS: Acetaminophen 325 MG Tab PO SCH ×4 (09:53→21:32)
[2016-10-03] MEDS: oxyCODONE 5 MG Tab PO PRN (09:53)
[2016-10-03] MEDS: Ondansetron 4 MG Tab.DIS PO PRN (16:22)
[2016-10-04] MEDS: oxyCODONE 5 MG Tab PO PRN (03:06)
[2016-10-04] MEDS: Calcium Carbonate/Vitamin D3 1250 MG-200 Unit Tab PO SCH ×2 (09:54→18:23)
[2016-10-04] MEDS: Acetaminophen 325 MG Tab PO SCH ×4 (09:55→20:58)
[2016-10-04] MEDS: Famotidine 20 MG Tab PO SCH (09:56)
[2016-10-04] MEDS: metFORMIN 1,000 MG Tab PO SCH ×2 (09:56→18:23)
[2016-10-04] MEDS: Gabapentin 100 MG Cap PO SCH ×3 (09:57→20:59)
[2016-10-04] MEDS: Multivitamin Tab PO SCH (09:57)
[2016-10-04] MEDS: Nicotine 21 MG/24 Hr Patch TOP SCH (09:58)
[2016-10-05] MEDS: Calcium Carbonate/Vitamin D3 1250 MG-200 Unit Tab PO SCH ×2 (10:16→18:14)
[2016-10-05] MEDS: metFORMIN 1,000 MG Tab PO SCH ×2 (10:16→18:13)
[2016-10-05] MEDS: Nicotine 21 MG/24 Hr Patch TOP SCH (10:17)
[2016-10-05] MEDS: Gabapentin 100 MG Cap PO SCH ×3 (10:18→20:58)
[2016-10-05] MEDS: Acetaminophen 325 MG Tab PO SCH ×4 (10:20→20:58)
[2016-10-05] MEDS: Multivitamin Tab PO SCH (10:20)
[2016-10-05] MEDS: Famotidine 20 MG Tab PO SCH (10:22)
[2016-10-06] MEDS: oxyCODONE 5 MG Tab PO PRN ×3 (01:21→22:54)
[2016-10-06] MEDS: Calcium Carbonate/Vitamin D3 1250 MG-200 Unit Tab PO SCH ×2 (08:43→18:49)
[2016-10-06] MEDS: metFORMIN 1,000 MG Tab PO SCH ×2 (08:44→18:51)
[2016-10-06] MEDS: Gabapentin 100 MG Cap PO SCH ×3 (08:44→20:59)
[2016-10-06] MEDS: Famotidine 20 MG Tab PO SCH (08:45)
[2016-10-06] MEDS: Multivitamin Tab PO SCH (08:46)
[2016-10-06] MEDS: Nicotine 21 MG/24 Hr Patch TOP SCH (08:47)
[2016-10-06] MEDS: Ondansetron 4 MG Tab.DIS PO PRN (12:10)
[2016-10-06] MEDS: Acetaminophen 325 MG Tab PO SCH ×4 (12:55→21:00)
[2016-10-07] MEDS: Calcium Carbonate/Vitamin D3 1250 MG-200 Unit Tab PO SCH ×3 (09:23→17:04)
[2016-10-07] MEDS: metFORMIN 1,000 MG Tab PO SCH ×2 (09:23→19:21)
[2016-10-07] MEDS: Nicotine 21 MG/24 Hr Patch TOP SCH (09:23)
[2016-10-07] MEDS: Multivitamin Tab PO SCH (09:24)
[2016-10-07] MEDS: Famotidine 20 MG Tab PO SCH (09:24)
[2016-10-07] MEDS: Acetaminophen 325 MG Tab PO SCH ×4 (09:24→21:58)
[2016-10-07] MEDS: Gabapentin 100 MG Cap PO SCH ×3 (09:24→21:58)
--- NOTE | 2016-10-07 09:30 | CR ---
INDICATION: Status post fall with proximal femoral shaft fracture involving approximately 2 inches of the greater trochanter and a little less of the lesser trochanter. RIGHT HIP, 2 VIEWS: Total hip arthroplasty is noted in good position and alignment with no significant change in alignment of the proximal femur fracture involving the greater and lesser trochanters. ANJANAD
[2016-10-07] MEDS: oxyCODONE 5 MG Tab PO PRN (21:59)
[2016-10-08 08:55] VITALS: BP 107/54
[2016-10-08] MEDS: Calcium Carbonate/Vitamin D3 1250 MG-200 Unit Tab PO SCH (08:58)
[2016-10-08] MEDS: Famotidine 20 MG Tab PO SCH (09:00)
[2016-10-08] MEDS: Nicotine 21 MG/24 Hr Patch TOP SCH (09:00)
[2016-10-08] MEDS: Acetaminophen 325 MG Tab PO SCH ×2 (09:00→14:36)
[2016-10-08] MEDS: Gabapentin 100 MG Cap PO SCH ×2 (09:00→14:36)
[2016-10-08] MEDS: Multivitamin Tab PO SCH (09:00)
[2016-10-08] MEDS: metFORMIN 1,000 MG Tab PO SCH (09:00)
[2016-10-08] MEDS: Ondansetron 4 MG Tab.DIS PO PRN (12:14)
--- NOTE | 2016-10-08 14:03 | PCM.DCSUM1 ---
Discharge Summary - Hospital Course HPI Initial Comments: Pleasant 66y female that suffered right hip fracture when she fell while walking on a sidewalk. She was seen here and transferred to [place] for a femur fracture. It was nondisplaced and they elected not to operate on the hip. She was sent here for rehabilitation, pain control and follow up with Dr. Grullon. She had no other concerns. - Discharge Data Discharge Date: 10/08/16 Discharge Disposition: Home, W Home Health Agency 06 Condition: Good - Discharge Diagnosis/Problem(s) (1) Femur fracture, right SNOMED Code(s): 15238635 ICD Code: S72.91XA - UNSP FRACTURE OF RIGHT FEMUR, INIT FOR CLOS FX Status : Acute (2) Hyperglycemia due to type 2 diabetes mellitus SNOMED Code(s): 852293164961352, 323542668312299 ICD Code: E11.65 - TYPE 2 DIABETES MELLITUS WITH HYPERGLYCEMIA Status: Acute Qualifiers: Diabetes mellitus top carrier insulin use: without top carrier use Qualified Code(s): E11.65 - Type 2 diabetes mellitus with hyperglycemia (3) Tobacco abuse SNOMED Code(s): 136397356, 838743285 ICD Code: Z72.0 - TOBACCO USE Status: Acute - Patient Summary/Data Consults: Consultations 09/29/16 14:24 OT Evaluation and Treatment [CONS] Routine Please Evaluate and Treat. OT Reason for Consult: ADL's This query below is only for informational purposes and is not editable. PT Evaluation and Treatment [CONS] Routine Please Evaluate and Treat. PT Reason for Consult: Ambulation This query below is only for informational purposes and is not editable. 09/30/16 12:05 Consult to Physician [CONS] Routine Consulting Provider: Dima Grullon Call Completed to Consulting Physician: Yes Date Notified: 09/30/16 Time Notified: 12:30 Special Instructions: Dr VIOLETTA hope with seeing her on 10-06 Recommended Follow-up Testing/Procedures: Follow up with ortho Dr. Mitchel MD as scheduled. Hospital Course: She progressed with PT/OT and with pain control acheived. no events during stay and she is now ready to transfer to home with continued home dora and PT. safety assessments at home as well. she will follow up with ortho and PCP as recommended. all chronic old and new medications reviewed and adjustments documented. she is comfortable with the above plan. - Patient Instructions Diet: Diabetic Diet Activity: As Tolerated, Cough & Deep Breathe Driving: Do Not Drive Showering/Bathing: May Shower Notify Provider of: Fever, Increased Pain, Swelling and Redness, Nausea and/or Vomiting Other/Special Instructions: Follow up with Dr. Mitchel MD Othopedics as scheduled on October 22, 2016 at 2pm. PT/OT to follow with home health for continued mobility/strengthening/and safety assessments. - Discharge Plan Prescriptions/Med Rec: Ondansetron HCl [Zofran] 4 mg PO Q6H PRN #30 tablet PRN Reason: Nausea/Vomiting oxyCODONE 5 mg PO Q4H PRN #20 tablet PRN Reason: hip pain Home Medications: Home Meds Acetaminophen [Tylenol] 650 mg PO QID 09/29/16 [History] Calcium Carbonate [Ydoh-Snm-530] 500 mg PO BIDMEALS 09/29/16 [History] Carboxymethylcellulose Sodium [Refresh Plus 0.5%] 1 drop EYEBOTH QID PRN [History] Cholecalciferol (Vitamin D3) [Vitamin D3] 2,000 unit PO DAILY 09/29/16 [History] Famotidine 20 mg PO DAILY 09/29/16 [History] Gabapentin [Neurontin] 200 mg PO TID 09/29/16 [History] Multivitamin [Daily Saul] 1 tab PO DAILY 09/29/16 [History] Nicotine Polacrilex [Nicotine Lozenge] 2 mg PO Q1H PRN 09/29/16 [History] Nicotine [Habitrol] 21 mg TOP DAILY 09/29/16 [History] Sennosides/Docusate Sodium [Senna S Tablet] 2 ea PO BID 09/29/16 [History] metFORMIN [Glucophage] 1,000 mg PO BID 09/29/16 [History] Ondansetron HCl [Zofran] 4 mg PO Q6H PRN #30 tablet 10/08/16 [Rx] oxyCODONE 5 mg PO Q4H PRN #20 tablet 10/08/16 [Rx] Patient Handouts: Fall Prevention in Hospitals, Adult, Sequential Compression Device, Deep Vein Thrombosis Referrals: Dima Grullon MD [Physician] - 10/22/16 2:00 pm - Discharge Summary/Plan Comment DC Time >30 min.: Yes - General Info Functional Status: Reports: Pain Controlled, Tolerating Diet, Ambulating, Urinating, Incentive Spirometry - Review of Systems General: Reports: No Symptoms HEENT: Reports: No Symptoms Pulmonary: Reports: No Symptoms Cardiovascular: Reports: No Symptoms Gastrointestinal: Reports: No Symptoms Genitourinary: Reports: No Symptoms Musculoskeletal: Reports: Leg Pain (improved) Skin: Reports: No Symptoms Neurological: Reports: Difficulty Walking, Gait Disturbance Psychiatric: Reports: No Symptoms - Patient Data Vitals - Most Recent: Last Vital Signs Temp 97.3 F 10/08/16 08:00 Pulse 81 10/08/16 08:00 Resp 18 10/08/16 08:00 BP 107/54 L 10/08/16 08:00 Pulse Ox 99 10/08/16 08:00 Weight - Most Recent: 40.551 kg Lab Results - Last 24 hrs: Laboratory Results - last 24 hr 10/07/16 10/08/16 Range/Units 17:12 06:52 POC Glucose 122 H 89 (80-116) mg/dL Med Orders - Current: Current Medications Acetaminophen (Tylenol) 650 mg PO QID [facility] Stop: 10/13/16 13:01 Last Admin: 10/08/16 09:00 Dose: 650 mg Artificial Tears (Refresh Plus 0.5%) 0 each EYEBOTH QID PRN PRN Reason: Dry Eyes Last Admin: 09/30/16 09:23 Dose: 1 drop Calcium Carbonate (Calcium Carbonate/Vitamin D 1250 Mg-200 Unit) 1 tab PO BIDMEALS [facility] Last Admin: 10/08/16 08:58 Dose: Not Given Famotidine (Pepcid) 20 mg PO DAILY [facility] Stop: 10/09/16 09:01 Last Admin: 10/08/16 09:00 Dose: 20 mg Gabapentin (Neurontin) 200 mg PO TID [facility] Stop: 10/13/16 09:01 Last Admin: 10/08/16 09:00 Dose: 200 mg Metformin HCl (Glucophage) 1,000 mg PO BIDMEALS [facility] Last Admin: 10/08/16 09:00 Dose: 1,000 mg Multivitamins/Minerals/Vitamin C (Tab-A-Saul) 1 tab PO DAILY [facility] Last Admin: 10/08/16 09:00 Dose: 1 tab Nicotine (Habitrol) 21 mg TOP DAILY [facility] Last Admin: 10/08/16 09:00 Dose: 21 mg Nicotine Polacrilex (Nicorelief) 2 mg CHEW Q1H PRN PRN Reason: smoking Ondansetron HCl (Zofran Odt) 4 mg PO Q6H PRN PRN Reason: Nausea/Vomiting Last Admin: 10/08/16 12:14 Dose: 4 mg Oxycodone HCl (Oxycodone) 5 mg PO Q4H PRN PRN Reason: MODERATE/SEVERE PAIN Last Admin: 10/07/16 21:59 Dose: 5 mg Senna/Docusate Sodium (Senna Plus) 2 tab PO BID [facility] Stop: 10/09/16 09:01 Last Admin: 10/08/16 08:59 Dose: Not Given Discontinued Medications Cholecalciferol (Vitamin D3) 2,000 units PO DAILY [facility] Miscellaneous Information (Remove Patch) 1 ea TRDERM ONETIME ONE Stop: 09/29/16 16:31 Last Admin: 09/29/16 16:51 Dose: 1 ea Nicotine (Habitrol) 14 mg TOP DAILY [facility] Non-Formulary Medication (Nicotine Polacrilex [Nicotine Lozenge]) 2 mg PO Q1H PRN PRN Reason: SMOKING CESSATION - Exam General: Reports: Alert, Oriented, Cooperative, No Acute Distress Lungs: Reports: Clear to Auscultation, Normal Respiratory Effort Cardiovascular: Reports: Regular Rate, Regular Rhythm GI/Abdominal Exam: Normal Bowel Sounds, Soft, Pelvis Stable Back Exam: Denies: Muscle Spasm Extremities: Normal Inspection, Normal Capillary Refill. No: Joint Swelling, Carin's Sign Skin: Reports: Warm, Dry, Intact Neurological: Reports: No New Focal Deficit Psy/Mental Status: Reports: Normal Affect, Normal Mood *Q Meaningful Use (DIS) - VTE *Q VTE Criteria *Q: - Stroke *Q Stroke Criteria *Q: - AMI *Q AMI Criteria *Q:
== END 2016-10-08 15:00 | disposition home health service (06) | DRG 561 ==
LOC: FB.MS 12:57
PROVIDERS: ADMIT Family Medicine; ATTEND Family Medicine
DX: S72.301D Unspecified fracture of shaft of right femur, subsequent encounter for closed fracture with routine healing (principal); F17.210 Nicotine dependence, cigarettes, uncomplicated; M19.90 Unspecified osteoarthritis, unspecified site; Z87.440 Personal history of urinary (tract) infections; H54.7 Unspecified visual loss; Z79.84 Long term (current) use of oral hypoglycemic drugs; Z96.641 Presence of right artificial hip joint; W19.XXXD Unspecified fall, subsequent encounter; M25.551 Pain in right hip; E11.65 Type 2 diabetes mellitus with hyperglycemia
CPT/HCPCS: 73502-RT; 82962; 97110-GP; 97116-GP; 97162-GP; 97166-GO; 97530-GO; 97530-GO-KX; 97535-GO; A9270-GY